=== PATIENT | female | born 1955 | race Caucasian/White ===

== ENCOUNTER 2017-06-07 09:15 | Emergency (ER) | payer OTHER ==
[~2017-06-07] VITALS: Ht 160 cm; Wt 49.9 kg
[~2017-06-07 09:15] MED LIST: ANAPROX DS550 MG PO; CIPROFLOXACIN500 MG PO; METOPROLOL100 MG PO; MOTRIN800 MG PO; PERCOCET 325 MG1 TA2 PO; ZOFRAN4 MG PO
[2017-06-07 09:29] LABS: BASO # 0.1 10*3/uL (0.0-0.1); BASO % 0.7 % (0.0-1.0); EOS # 0.1 10*3/uL (0.0-0.4); EOS % 1.5 % (1.0-4.0); HEMATOCRIT 40.3 % (37.0-47.0); HEMOGLOBIN 13.5 g/dl (12.0-16.0); LYMPH # 1.9 10*3/uL (1.3-4.4); MEAN CELL VOLUME 89.8 fl (81.0-99.0); MEAN CORPUSCULAR HGB 30.1 pg (27.0-31.0); MEAN CORPUSCULAR HGB CONC 33.5 g/dl (33.0-37.0); MEAN PLATELET VOLUME 10.1 fl (9.6-12.3); MONO # 0.7 10*3/uL (0.1-1.0); MONO % 8.3 % (3.0-9.0); NEUT # 5.8 10*3/uL (2.3-7.9); NEUT % 67.2 % (47.0-73.0); PLATELET COUNT AUTOMATED 315 10*3/uL (130-400); RED BLOOD COUNT 4.49 10*6/uL (4.10-5.10); RED CELL DISTRI WIDTH 12.6 % (0-14.5); WHITE BLOOD COUNT 8.6 10*3/uL (4.8-10.8)
[2017-06-07 09:50] LABS: ALBUMIN 3.2 gm/dl (3.1-4.5); ALKALINE PHOSPHATASE 130 U/L (45-117); BUN 13 mg/dl (7-24); CHLORIDE 105 mmol/L (98-107); CREATININE 0.65 mg/dL (0.55-1.02); LIPASE 231 U/L (73-393); POTASSIUM 4.4 mmol/L (3.5-5.1); SGOT/AST 23 IU/L (3-35); SGPT/ALT 23 U/L (12-78); SODIUM 141 mmol/L (136-145); TOTAL PROTEIN 7.5 gm/dL (6.4-8.2); TROPONIN I < 0.015 ng/ml (<0.045)
[2017-06-07] MEDS ORDERED: NAPROSYN500 MG PO (10:33)
== END 2017-06-07 10:53 | disposition home or self-care (01) ==
LOC: ED 09:15
PROVIDERS: Nurse Practitioner Family
DX: I49.1 Atrial premature depolarization (principal); R07.9 Chest pain, unspecified

== ENCOUNTER 2017-07-08 06:07 | Emergency (ER) | payer OTHER ==
[~2017-07-08] VITALS: Ht 160 cm; Wt 47.6 kg
[~2017-07-08 06:07] MED LIST changes: +NAPROSYN500 MG PO
[2017-07-08] MEDS ORDERED: AUGMENTIN 875875 MG PO (06:24)
== END 2017-07-08 06:27 | disposition home or self-care (01) ==
LOC: ED 06:07
DX: S61.432A Puncture wound without foreign body of left hand, initial encounter (principal); S61.431A Puncture wound without foreign body of right hand, initial encounter; W54.0XXA Bitten by dog, initial encounter; Y93.89 Activity, other specified; Y92.89 Other specified places as the place of occurrence of the external cause; Y99.9 Unspecified external cause status

== ENCOUNTER 2018-01-02 09:18 | Emergency (ER) | payer OTHER ==
[~2018-01-02] VITALS: Ht 165.1 cm; Wt 49.9 kg
[~2018-01-02 09:18] MED LIST changes: +AUGMENTIN 875875 MG PO
[2018-01-02 09:56] LABS: BILIRUBIN NEGATIVE (NEGATIVE); BLOOD NEGATIVE (NEGATIVE); CLARITY CLEAR (CLEAR); COLOR YELLOW (YELLOW); GLUCOSE NEGATIVE (NEGATIVE); KETONE NEGATIVE (NEGATIVE); LEUKO ESTERASE NEGATIVE (NEGATIVE); NITRITE NEGATIVE (NEGATIVE); PH 5.5 (5.0-9.0); UROBILINOGEN 0.2 E.U./dl (0.2-1.0)
[2018-01-02 10:06] LABS: BASO % 0.4 % (0.0-1.0); EOS % 0.4 % (1.0-4.0); HEMATOCRIT 41.1 % (37.0-47.0); HEMOGLOBIN 13.4 g/dl (12.0-16.0); LYMPH # 1.4 10*3/uL (1.3-4.4); LYMPH % 25.1 % (27.0-41.0); MEAN CELL VOLUME 91.7 fl (81.0-99.0); MEAN CORPUSCULAR HGB 29.9 pg (27.0-31.0); MEAN CORPUSCULAR HGB CONC 32.6 g/dl (33.0-37.0); MEAN PLATELET VOLUME 10.5 fl (9.6-12.3); MONO # 0.6 10*3/uL (0.1-1.0); MONO % 10.2 % (3.0-9.0); NEUT # 3.5 10*3/uL (2.3-7.9); NEUT % 63.5 % (47.0-73.0); PLATELET COUNT AUTOMATED 236 10*3/uL (130-400); RED BLOOD COUNT 4.48 10*6/uL (4.10-5.10); WHITE BLOOD COUNT 5.5 10*3/uL (4.8-10.8)
[2018-01-02 10:09] LABS: BACTERIA TRACE; MUCOUS 1+
[2018-01-02 10:14] LABS: ALBUMIN 3.4 gm/dl (3.1-4.5); ALKALINE PHOSPHATASE 102 U/L (45-117); BUN 14 mg/dl (7-24); CHLORIDE 109 mmol/L (98-107); CREATININE 0.72 mg/dL (0.55-1.02); LIPASE 236 U/L (73-393); POTASSIUM 3.6 mmol/L (3.5-5.1); SGOT/AST 19 IU/L (3-35); SGPT/ALT 20 U/L (12-78); SODIUM 144 mmol/L (136-145); TOTAL PROTEIN 7.1 gm/dL (6.4-8.2)
[2018-01-02] MEDS ORDERED: NAPROSYN500 MG PO (10:18)
== END 2018-01-02 11:16 | disposition home or self-care (01) ==
LOC: ED 09:18
PROVIDERS: Emergency Medicine; Nurse Practitioner Family
DX: R07.81 Pleurodynia (principal); R03.0 Elevated blood-pressure reading, without diagnosis of hypertension

== ENCOUNTER → 2018-04-20 | Outpatient (CLI) | payer OTHER ==
[2018-04-20 10:48] LABS: HEMATOCRIT 45.3 % (37.0-47.0); HEMOGLOBIN 14.9 g/dl (12.0-16.0); MEAN CELL VOLUME 91.1 fl (81.0-99.0); MEAN CORPUSCULAR HGB CONC 32.9 g/dl (33.0-37.0); MEAN PLATELET VOLUME 10.4 fl (9.6-12.3); RED BLOOD COUNT 4.97 10*6/uL (4.10-5.10); RED CELL DISTRI WIDTH 12.8 % (0-14.5); WHITE BLOOD COUNT 5.5 10*3/uL (4.8-10.8)
[2018-04-20 11:27] LABS: ALBUMIN 3.6 gm/dl (3.1-4.5); BUN 16 mg/dl (7-24); CHLORIDE 106 mmol/L (98-107); CHOLESTEROL 271 mg/dL (<200); CREATININE 0.64 mg/dL (0.55-1.02); POTASSIUM 4.6 mmol/L (3.5-5.1); SGOT/AST 16 IU/L (3-35); SGPT/ALT 17 U/L (12-78); SODIUM 142 mmol/L (136-145); TOTAL PROTEIN 7.9 gm/dL (6.4-8.2); TRIGLYCERIDES 80 mg/dl (<150); VLDL CHOLESTEROL 16 mg/dL (6-40)
[2018-04-20 11:28] LABS: ALKALINE PHOSPHATASE 103 U/L (45-117); HDL CHOLESTEROL 87 mg/dl (40-60); LDL CHOLESTEROL 168 mg/dL (9-159)
== END | disposition home or self-care (01) ==
LOC: LAB 10:22
PROVIDERS: Family Medicine
DX: E55.9 Vitamin D deficiency, unspecified (principal); E78.00 Pure hypercholesterolemia, unspecified

== ENCOUNTER → 2018-06-02 | Outpatient (CLI) | payer OTHER | LOC: MAMMO 15:53 | DX: Z12.31 Encounter for screening mammogram for malignant neoplasm of breast (principal) ==

== ENCOUNTER → 2018-06-14 | Outpatient (CLI) | payer OTHER ==
[2018-06-14 17:12] LABS: ALBUMIN 3.3 gm/dl (3.1-4.5); ALKALINE PHOSPHATASE 101 U/L (45-117); BUN 26 mg/dl (7-24); CHLORIDE 108 mmol/L (98-107); CHOLESTEROL 222 mg/dL (<200); CREATININE 0.71 mg/dL (0.55-1.02); HDL CHOLESTEROL 75 mg/dl (40-60); LDL CHOLESTEROL 106 mg/dL (9-159); POTASSIUM 3.5 mmol/L (3.5-5.1); SGOT/AST 19 IU/L (3-35); SGPT/ALT 18 U/L (12-78); SODIUM 142 mmol/L (136-145); TOTAL PROTEIN 6.9 gm/dL (6.4-8.2); TRIGLYCERIDES 207 mg/dl (<150); VLDL CHOLESTEROL 41 mg/dL (6-40)
== END | disposition home or self-care (01) ==
LOC: LAB 16:21
PROVIDERS: Family Medicine
DX: E78.00 Pure hypercholesterolemia, unspecified (principal)

== ENCOUNTER → 2018-10-15 | Outpatient (CLI) | payer OTHER ==
[~2018-10-15] MED LIST changes: +PREDNISONE20 M1 PO
[2018-10-15 09:19] LABS: ALBUMIN 3.2 gm/dl (3.1-4.5); ALKALINE PHOSPHATASE 103 U/L (45-117); BUN 19 mg/dl (7-24); CHLORIDE 108 mmol/L (98-107); CHOLESTEROL 234 mg/dL (<200); CREATININE 0.72 mg/dL (0.55-1.02); HDL CHOLESTEROL 83 mg/dl (40-60); LDL CHOLESTEROL 137 mg/dL (9-159); POTASSIUM 4.6 mmol/L (3.5-5.1); SGOT/AST 20 IU/L (3-35); SGPT/ALT 23 U/L (12-78); SODIUM 142 mmol/L (136-145); TOTAL PROTEIN 7.1 gm/dL (6.4-8.2); TRIGLYCERIDES 71 mg/dl (<150); VLDL CHOLESTEROL 14 mg/dL (6-40)
== END | disposition home or self-care (01) ==
LOC: LAB 08:38
PROVIDERS: Family Medicine
DX: E74.9 Disorder of carbohydrate metabolism, unspecified (principal); E78.00 Pure hypercholesterolemia, unspecified

== ENCOUNTER 2019-02-14 11:32 | Emergency (ER) | payer OTHER ==
[~2019-02-14] VITALS: Ht 160 cm; Wt 48.5 kg
[~2019-02-14 11:32] MED LIST changes: -PREDNISONE20 M1 PO
[2019-02-14] MEDS ORDERED: PREDNISONE20 M1 PO (12:16)
== END 2019-02-14 12:20 | disposition home or self-care (01) ==
LOC: ED 11:32
DX: L23.7 Allergic contact dermatitis due to plants, except food (principal)

== ENCOUNTER → 2019-08-02 | Outpatient (CLI) | payer MEDICAID ==
[~2019-08-02] MED LIST changes: +PREDNISONE20 M1 PO
[2019-08-02 09:46] LABS: HEMATOCRIT 44.4 % (37.0-47.0); HEMOGLOBIN 14.4 g/dl (12.0-16.0); MEAN CELL VOLUME 90.4 fl (81.0-99.0); MEAN CORPUSCULAR HGB 29.3 pg (27.0-31.0); MEAN CORPUSCULAR HGB CONC 32.4 g/dl (33.0-37.0); MEAN PLATELET VOLUME 10.6 fl (9.6-12.3); RED BLOOD COUNT 4.91 10*6/uL (4.10-5.10); RED CELL DISTRI WIDTH 12.6 % (0-14.5); WHITE BLOOD COUNT 5.2 10*3/uL (4.8-10.8)
[2019-08-02 10:15] LABS: CHLORIDE 109 mmol/L (98-107); POTASSIUM 3.9 mmol/L (3.5-5.1); SODIUM 140 mmol/L (136-145)
[2019-08-02 10:33] LABS: ALBUMIN 3.6 gm/dl (3.1-4.5); ALKALINE PHOSPHATASE 112 U/L (45-117); BUN 16 mg/dl (7-24); CHOLESTEROL 237 mg/dL (<200); CREATININE 0.76 mg/dL (0.55-1.02); HDL CHOLESTEROL 82 mg/dl (40-60); LDL CHOLESTEROL 133 mg/dL (9-159); SGOT/AST 19 IU/L (3-35); SGPT/ALT 20 U/L (12-78); TOTAL PROTEIN 7.3 gm/dL (6.4-8.2); TRIGLYCERIDES 111 mg/dl (<150); VLDL CHOLESTEROL 22 mg/dL (6-40)
== END | disposition home or self-care (01) ==
LOC: LAB 08:56
PROVIDERS: Family Medicine
DX: M67.432 Ganglion, left wrist (principal); M25.532 Pain in left wrist; E78.00 Pure hypercholesterolemia, unspecified; R53.83 Other fatigue

== ENCOUNTER → 2019-08-25 | Outpatient (CLI) | payer OTHER | END | disposition home or self-care (01) | LOC: LAB 08:33 | DX: L29.9 Pruritus, unspecified (principal) ==

== ENCOUNTER → 2019-09-13 | Outpatient (CLI) | payer OTHER | END | disposition home or self-care (01) | LOC: RAD 10:37 | DX: R05 Cough (principal); R06.02 Shortness of breath ==

== ENCOUNTER → 2019-12-23 | Outpatient (CLI) | payer OTHER | END | disposition home or self-care (01) | LOC: RAD 10:29 | DX: M46.82 Other specified inflammatory spondylopathies, cervical region (principal); M48.02 Spinal stenosis, cervical region; M25.78 Osteophyte, vertebrae ==

== ENCOUNTER 2020-01-23 10:56 | Inpatient (IN) | payer OTHER ==
[~2020-01-23] VITALS: Ht 160 cm; Wt 48.1 kg
[2020-01-23 11:03] VITALS: BP 122/78
[2020-01-23 11:30] LABS: BASO % 0.5 % (0.0-1.0); EOS # 0.1 10*3/uL (0.0-0.4); EOS % 0.7 % (1.0-4.0); HEMATOCRIT 41.7 % (37.0-47.0); LYMPH % 25.9 % (27.0-41.0); MEAN CELL VOLUME 89.9 fl (81.0-99.0); MEAN CORPUSCULAR HGB 29.7 pg (27.0-31.0); MEAN CORPUSCULAR HGB CONC 33.1 g/dl (33.0-37.0); MEAN PLATELET VOLUME 10.2 fl (9.6-12.3); MONO # 0.7 10*3/uL (0.1-1.0); MONO % 8.6 % (3.0-9.0); NEUT # 4.8 10*3/uL (2.3-7.9); NEUT % 63.9 % (47.0-73.0); PLATELET COUNT AUTOMATED 279 10*3/uL (130-400); RED BLOOD COUNT 4.64 10*6/uL (4.10-5.10); RED CELL DISTRI WIDTH 12.7 % (0-14.5); WHITE BLOOD COUNT 7.6 10*3/uL (4.8-10.8)
[2020-01-23 11:45] LABS: ALBUMIN 3.3 gm/dl (3.1-4.5); ALKALINE PHOSPHATASE 107 U/L (45-117); BUN 19 mg/dl (7-24); CHLORIDE 108 mmol/L (98-107); CREATININE 0.87 mg/dL (0.55-1.02); POTASSIUM 3.8 mmol/L (3.5-5.1); SGOT/AST 23 IU/L (3-35); SGPT/ALT 23 U/L (12-78); SODIUM 140 mmol/L (136-145); TOTAL PROTEIN 7.2 gm/dL (6.4-8.2)
[2020-01-23 12:00] VITALS: BP 130/62
[2020-01-23 14:17] LABS: BILIRUBIN 1+ (NEGATIVE); BLOOD NEGATIVE (NEGATIVE); CLARITY CLEAR (CLEAR); COLOR YELLOW (YELLOW); GLUCOSE NEGATIVE (NEGATIVE); KETONE NEGATIVE (NEGATIVE)
[2020-01-23 14:18] LABS: BACTERIA 1+; CALCIUM OXALATE CRYSTALS TRACE; LEUKO ESTERASE NEGATIVE (NEGATIVE); MUCOUS 1+; NITRITE NEGATIVE (NEGATIVE); PH 7.5 (5.0-9.0); UROBILINOGEN 0.2 E.U./dl (0.2-1.0)
[2020-01-23 14:25] VITALS: BP 120/68
[2020-01-23] MEDS ORDERED: ZOLOFT25 MG PO (14:25)
[2020-01-23] MEDS ORDERED: NAPROXEN500 MG PO (14:26)
[2020-01-23 14:50] VITALS: BP 120/68
--- NOTE | 2020-01-23 14:50 | NUR ---
A 65YO FEMALE, admitted to , under the services of KYRA Bruno MD with a diagnosis of NEAR SYNCOPE. Chief complaint is EPISODE OF DIZZINESS/WEAKNESS EARLIER TODAY. Patient arrived via stretcher from ER. Monitor applied. Initial assessment completed. Vital signs taken and recorded. KYRA BRUNO MD notified of admission to the unit. Orders received. See assessment for past medical history, medications and allergies. Patient and/or family oriented to unit. [facility] visitation policy reviewed. Clothing/patient valuable form completed. JEREMY LARA
[2020-01-23] MEDS ORDERED: FISH OIL 1,0001 EAC2 PO (15:02)
--- NOTE | 2020-01-23 15:35 | NUR ---
DR. WORTHINGTON NOTIFIED OF CONSULT, OBTAINED ADDITIONAL ORDERS FOR TROPONIN I AND ORTHOSTATIC BLOOD PRESSURES.
--- NOTE | 2020-01-23 17:00 | NUR ---
OBTAINED ORTHOSTATIC BLOOD PRESSURES FOLLOWED: SUPINE 136/66 PULSE 60, SITTING 147/64 PULSE 77, STANDING 151/79 PULSE 73.
[2020-01-23 20:00] VITALS: BP 120/73
[2020-01-24] VITALS: BP 136/68
--- NOTE | 2020-01-24 04:50 | NUR ---
PATIENT RESTING IN BED QUIETLY. NO COMPLAINTS AT THIS TIME. CALL LIGHT WITHIN REACH. WILL CONTINUE TO MONITOR.
[2020-01-24 08:00] VITALS: BP 124/69
--- NOTE | 2020-01-24 08:14 | NUR ---
24 HR chart check completed.
--- NOTE | 2020-01-24 09:00 | NUR ---
Cabinetmaker Apprentice in to talk to patient. Patient states lives at home with her daughter. There are 8-9 steps in the home. Physician: Dr. Manjinder Ricardo Pharmacy: [facility] health services: none Patient's level of ADLs: INDEPENDENT Patient has working utilities: yes DME: none Follow-up physician's appointment after d/c: she prefers to make her own follow up appt after discharge Does patient want to access PORTAL?: no Discharge plan discussed with patient. She lives at home with her daughter. She states she is independent in her ADLs and ambulation. Discussed short term rehab and home health care services and she denies a need for either. When medically stable she will be discharged to home. She states one of her daughters will provide transportation on discharge. FANG STAFFORD
[2020-01-24 12:00] VITALS: BP 109/63
[2020-01-24 16:00] VITALS: BP 115/73
[2020-01-24 20:00] VITALS: BP 121/64
--- NOTE | 2020-01-24 20:15 | NUR ---
PATIENT C/O A HEADACHE, NOTIFIED DR. VILLALOBOS. 1000MG TYLENOL ORDERED Q8HRS PRN.
--- NOTE | 2020-01-24 21:18 | NUR ---
PATIENT C/O HEADACHE. RATES 12/14. WILL CHECK EFFECTIVENESS.
[2020-01-25] VITALS: BP 146/71
--- NOTE | 2020-01-25 | NUR ---
PATIENT SLEEPING, NO SIGNS OF DISTRESS, TYLENOL EFFECTIVE. WILL CONTINUE TO MONITOR.
--- NOTE | 2020-01-25 07:25 | NUR ---
PATIENT SLEEPING, RESPIRATIONS EASY, NON LABORED. BED IN LOWEST POSITION,CALL LIGHT WITHIN REACH. WILL CONTINUE TO MONITOR.
--- NOTE | 2020-01-25 07:45 | NUR ---
24 HR chart check completed.
[2020-01-25 08:00] VITALS: BP 119/62
--- NOTE | 2020-01-25 09:35 | NUR ---
TOOK OVER THE CARE OF PATIENT. PATIENT WAS WORKING WITH PHYSICAL THEARPY AND HAD NO COMPLAINTS OF ANYTHING AT THIS TIME. I NOTIFIED HER ABOUT BEING DISCHARGED TODAY.
--- NOTE | 2020-01-25 09:59 | NUR ---
PHYSICAL THERAPY Sunithakarishma completed no skilled therapy need at this time for discharge today to home Kathleen Gonsalez PT
[2020-01-25 12:00] VITALS: BP 102/53
--- NOTE | 2020-01-25 14:08 | NUR ---
Occupational Therapy evaluation completed on 5E with full evaluation to follow. Recommend occupational therapy per plan of care and return home upon discharge. Thank you for this referral. Gayathri Pantoja OTR/L
--- NOTE | 2020-01-25 14:30 | NUR ---
Discharge instructions reviewed with patient/family. Patient receptive and verbalizes understanding. Follow-up care arranged. Written instructions given to patient/family. IV WAS REMOVED AND HEART MONITOR WAS REMOVED. PT HAD NO QUESTIONS AT THIS TIME. SHRUTHI SANTACRUZ
== END 2020-01-25 14:40 | disposition home or self-care (01) | DRG 204 ==
LOC: ED 10:56 → EDHOLD 13:48 → 5E 13:48
PROVIDERS: Emergency Medicine; ADMIT Internal Medicine
DX: R55 Syncope and collapse (principal); Z82.3 Family history of stroke; Z79.899 Other long term (current) drug therapy

== ENCOUNTER 2020-05-06 08:34 | Emergency (ER) | payer OTHER ==
[~2020-05-06] VITALS: Ht 162.5 cm; Wt 47.6 kg
[~2020-05-06 08:34] MED LIST changes: +FISH OIL 1,0001 EAC2 PO; +NAPROXEN500 MG PO; +ZOLOFT25 MG PO
[2020-05-06 09:20] LABS: BASO % 0.2 % (0.0-1.0); EOS # 0.1 10*3/uL (0.0-0.4); EOS % 0.6 % (1.0-4.0); HEMATOCRIT 41.6 % (37.0-47.0); LYMPH # 1.4 10*3/uL (1.3-4.4); LYMPH % 14.7 % (27.0-41.0); MEAN CELL VOLUME 89.8 fl (81.0-99.0); MEAN CORPUSCULAR HGB 29.4 pg (27.0-31.0); MEAN CORPUSCULAR HGB CONC 32.7 g/dl (33.0-37.0); MEAN PLATELET VOLUME 10.3 fl (9.6-12.3); MONO # 0.5 10*3/uL (0.1-1.0); MONO % 5.6 % (3.0-9.0); NEUT # 7.3 10*3/uL (2.3-7.9); NEUT % 78.4 % (47.0-73.0); PLATELET COUNT AUTOMATED 303 10*3/uL (130-400); RED BLOOD COUNT 4.63 10*6/uL (4.10-5.10); RED CELL DISTRI WIDTH 12.7 % (0-14.5); WHITE BLOOD COUNT 9.3 10*3/uL (4.8-10.8)
[2020-05-06 09:36] LABS: BUN 22 mg/dl (7-24); CHLORIDE 110 mmol/L (98-107); CREATININE 0.82 mg/dL (0.55-1.02); POTASSIUM 4.4 mmol/L (3.5-5.1); SODIUM 143 mmol/L (136-145)
[2020-05-06 09:37] LABS: TROPONIN I < 0.015 ng/ml (<0.045)
== END 2020-05-06 09:46 | disposition home or self-care (01) ==
LOC: ED 08:34
PROVIDERS: Emergency Medicine
DX: R55 Syncope and collapse (principal); Z79.899 Other long term (current) drug therapy

== ENCOUNTER 2020-06-14 00:19 | Emergency (ER) | payer OTHER ==
[~2020-06-14] VITALS: Ht 160 cm; Wt 49.9 kg
[2020-06-14 01:09] LABS: BASO # 0.1 10*3/uL (0.0-0.1); BASO % 0.6 % (0.0-1.0); EOS # 0.1 10*3/uL (0.0-0.4); EOS % 1.2 % (1.0-4.0); HEMATOCRIT 43.6 % (37.0-47.0); LYMPH # 3.2 10*3/uL (1.3-4.4); LYMPH % 37.4 % (27.0-41.0); MEAN CELL VOLUME 89.2 fl (81.0-99.0); MEAN CORPUSCULAR HGB 29.7 pg (27.0-31.0); MEAN CORPUSCULAR HGB CONC 33.3 g/dl (33.0-37.0); MEAN PLATELET VOLUME 10.2 fl (9.6-12.3); MONO # 0.7 10*3/uL (0.1-1.0); MONO % 8.7 % (3.0-9.0); NEUT # 4.4 10*3/uL (2.3-7.9); NEUT % 51.9 % (47.0-73.0); PLATELET COUNT AUTOMATED 285 10*3/uL (130-400); RED BLOOD COUNT 4.89 10*6/uL (4.10-5.10); RED CELL DISTRI WIDTH 12.6 % (0-14.5); WHITE BLOOD COUNT 8.5 10*3/uL (4.8-10.8)
[2020-06-14 01:13] LABS: BILIRUBIN Negative (Negative); BLOOD Negative (Negative); CLARITY Clear (Clear); COLOR Yellow (Yellow); GLUCOSE Negative (Negative); KETONE Trace (Negative); LEUKO ESTERASE Negative (Negative); NITRITE Negative (Negative); PH 7.5 (4.5-8.0); UROBILINOGEN 0.2 E.U./dl (0.0-1.0)
[2020-06-14 01:18] LABS: WBC 0-2 wbc/hpf (0-5)
[2020-06-14 01:25] LABS: ALBUMIN 3.6 gm/dl (3.1-4.5); ALKALINE PHOSPHATASE 114 U/L (45-117); BUN 21 mg/dl (7-24); CHLORIDE 108 mmol/L (98-107); CREATININE 0.82 mg/dL (0.55-1.02); POTASSIUM 3.7 mmol/L (3.5-5.1); SGOT/AST 20 IU/L (3-35); SGPT/ALT 17 U/L (12-78); SODIUM 139 mmol/L (136-145); TOTAL PROTEIN 7.4 gm/dL (6.4-8.2)
[2020-06-14] MEDS ORDERED: PERCOCET 5-3251 EACH PO (06:06)
== END 2020-06-14 08:43 | disposition other institution (70) ==
LOC: ED 00:19
PROVIDERS: Emergency Medicine
DX: N20.0 Calculus of kidney (principal); Z79.899 Other long term (current) drug therapy

== ENCOUNTER → 2020-10-16 | Outpatient (CLI) | payer OTHER ==
[~2020-10-16] MED LIST changes: +PERCOCET 5-3251 EACH PO
[2020-10-16 16:41] LABS: HEMATOCRIT 42.8 % (37.0-47.0); MEAN CELL VOLUME 90.7 fl (81.0-99.0); MEAN CORPUSCULAR HGB 29.7 pg (27.0-31.0); MEAN CORPUSCULAR HGB CONC 32.7 g/dl (33.0-37.0); RED BLOOD COUNT 4.72 10*6/uL (4.10-5.10); RED CELL DISTRI WIDTH 12.6 % (0-14.5); WHITE BLOOD COUNT 7.2 10*3/uL (4.8-10.8)
[2020-10-16 17:10] LABS: ALBUMIN 3.6 gm/dl (3.1-4.5); ALKALINE PHOSPHATASE 108 U/L (45-117); BUN 24 mg/dl (7-24); CHLORIDE 107 mmol/L (98-107); CREATININE 0.74 mg/dL (0.55-1.02); SGOT/AST 22 IU/L (3-35); SGPT/ALT 22 U/L (12-78); SODIUM 141 mmol/L (136-145); TOTAL PROTEIN 7.3 gm/dL (6.4-8.2)
== END | disposition home or self-care (01) ==
LOC: LAB 16:26
PROVIDERS: ATTEND Family Medicine
DX: E55.9 Vitamin D deficiency, unspecified (principal); N20.0 Calculus of kidney; E74.00 Glycogen storage disease, unspecified; F41.1 Generalized anxiety disorder

== ENCOUNTER → 2020-11-06 | Outpatient (CLI) | payer OTHER | END | disposition home or self-care (01) | LOC: CT 09:57 | PROVIDERS: ATTEND Urology | DX: N20.0 Calculus of kidney (principal); J98.11 Atelectasis; K59.00 Constipation, unspecified ==

== ENCOUNTER → 2020-12-21 | Outpatient (CLI) | payer OTHER | END | disposition home or self-care (01) | LOC: LAB 08:00 | PROVIDERS: ATTEND Urology | DX: N20.0 Calculus of kidney (principal); R31.9 Hematuria, unspecified ==

== ENCOUNTER → 2020-12-22 | Outpatient (CLI) | payer OTHER ==
[~2020-12-22] MED LIST changes: +TESSALON PERLE100 MG PO; +ZITHROMAX250 MG PO
[2020-12-22 09:32] LABS: BASO % 0.7 % (0.0-1.0); EOS # 0.1 10*3/uL (0.0-0.4); EOS % 1.3 % (1.0-4.0); HEMATOCRIT 42.1 % (37.0-47.0); LYMPH # 1.7 10*3/uL (1.3-4.4); LYMPH % 30.9 % (27.0-41.0); MEAN CELL VOLUME 91.5 fl (81.0-99.0); MEAN CORPUSCULAR HGB 29.3 pg (27.0-31.0); MEAN CORPUSCULAR HGB CONC 32.1 g/dl (33.0-37.0); MONO # 0.7 10*3/uL (0.1-1.0); MONO % 12.9 % (3.0-9.0); NEUT # 2.9 10*3/uL (2.3-7.9); PLATELET COUNT AUTOMATED 266 10*3/uL (130-400); WHITE BLOOD COUNT 5.4 10*3/uL (4.8-10.8)
[2020-12-22 09:57] LABS: ALBUMIN 3.2 gm/dl (3.1-4.5); ALKALINE PHOSPHATASE 96 U/L (45-117); BUN 19 mg/dl (7-24); CHLORIDE 108 mmol/L (98-107); CREATININE 0.73 mg/dL (0.55-1.02); POTASSIUM 3.6 mmol/L (3.5-5.1); SGOT/AST 18 IU/L (3-35); SGPT/ALT 20 U/L (12-78); SODIUM 141 mmol/L (136-145); T3 UPTAKE 34 % (31-39); THYROXINE (T4) TOTAL 7.2 ug/dl (4.8-13.9); TOTAL PROTEIN 7.1 gm/dL (6.4-8.2)
[2020-12-22 10:52] LABS: BILIRUBIN Negative (Negative); BLOOD Negative (Negative); CLARITY Clear (Clear); COLOR Yellow (Yellow); GLUCOSE Negative (Negative); KETONE Negative (Negative); LEUKO ESTERASE Negative (Negative); NITRITE Negative (Negative); PH 5.5 (4.5-8.0); SPECIFIC GRAVITY <= 1.005 (1.001-1.030); UROBILINOGEN 0.2 E.U./dl (0.0-1.0)
[2020-12-22 11:47] LABS: EPITHELIAL CELLS 0-2; RBC 0-2 rbc/hpf (0-2); WBC 0-2 wbc/hpf (0-5)
== END | disposition home or self-care (01) ==
LOC: US 12-20 13:30 → LAB 00:43 → US 09:30 → LAB 09:30
PROVIDERS: ATTEND Urology
DX: N20.0 Calculus of kidney (principal); I63.9 Cerebral infarction, unspecified; R31.9 Hematuria, unspecified

== ENCOUNTER 2020-12-26 21:47 | Emergency (ER) | payer OTHER ==
[~2020-12-26] VITALS: Ht 157.4 cm
[~2020-12-26 21:47] MED LIST changes: -TESSALON PERLE100 MG PO; -ZITHROMAX250 MG PO
[2020-12-26 22:40] LABS: BASO % 0.5 % (0.0-1.0); EOS % 0.5 % (1.0-4.0); HEMATOCRIT 39.3 % (37.0-47.0); MEAN CELL VOLUME 90.8 fl (81.0-99.0); MEAN CORPUSCULAR HGB CONC 33.1 g/dl (33.0-37.0); MEAN PLATELET VOLUME 10.4 fl (9.6-12.3); MONO # 0.8 10*3/uL (0.1-1.0); MONO % 10.3 % (3.0-9.0); NEUT # 5.2 10*3/uL (2.3-7.9); NEUT % 64.3 % (47.0-73.0); PLATELET COUNT AUTOMATED 243 10*3/uL (130-400); RED BLOOD COUNT 4.33 10*6/uL (4.10-5.10); RED CELL DISTRI WIDTH 13.2 % (0-14.5); WHITE BLOOD COUNT 8.1 10*3/uL (4.8-10.8)
[2020-12-26 22:59] LABS: ALBUMIN 3.2 gm/dl (3.1-4.5); ALKALINE PHOSPHATASE 98 U/L (45-117); BUN 13 mg/dl (7-24); CHLORIDE 107 mmol/L (98-107); CREATININE 0.73 mg/dL (0.55-1.02); POTASSIUM 3.7 mmol/L (3.5-5.1); SGOT/AST 22 IU/L (3-35); SGPT/ALT 18 U/L (12-78); SODIUM 141 mmol/L (136-145)
[2020-12-27] MEDS ORDERED: ZITHROMAX250 MG PO (00:38)
[2020-12-27] MEDS ORDERED: TESSALON PERLE100 MG PO (00:38)
== END 2020-12-27 06:32 | disposition home or self-care (01) ==
LOC: ED 21:47
PROVIDERS: Emergency Medicine
DX: J40 Bronchitis, not specified as acute or chronic (principal)

== ENCOUNTER → 2021-04-14 | Outpatient (CLI) | payer OTHER ==
[~2021-04-14] MED LIST changes: +TESSALON PERLE100 MG PO; +ZITHROMAX250 MG PO
[2021-04-14 08:59] LABS: HEMATOCRIT 41.7 % (37.0-47.0); MEAN CELL VOLUME 90.8 fl (81.0-99.0); MEAN CORPUSCULAR HGB 29.6 pg (27.0-31.0); MEAN CORPUSCULAR HGB CONC 32.6 g/dl (33.0-37.0); MEAN PLATELET VOLUME 10.2 fl (9.6-12.3); RED BLOOD COUNT 4.59 10*6/uL (4.10-5.10); WHITE BLOOD COUNT 5.5 10*3/uL (4.8-10.8)
[2021-04-14 09:19] LABS: ALBUMIN 3.3 gm/dl (3.1-4.5); BUN 17 mg/dl (7-24); CHLORIDE 106 mmol/L (98-107); CHOLESTEROL 239 mg/dL (<200); CREATININE 0.81 mg/dL (0.55-1.02); POTASSIUM 4.1 mmol/L (3.5-5.1); SGOT/AST 19 IU/L (3-35); SGPT/ALT 17 U/L (12-78); SODIUM 141 mmol/L (136-145); TRIGLYCERIDES 88 mg/dl (<150)
[2021-04-14 09:20] LABS: ALKALINE PHOSPHATASE 101 U/L (45-117); TOTAL PROTEIN 7.2 gm/dL (6.4-8.2)
[2021-04-14 09:21] LABS: LDL CHOLESTEROL 140 mg/dL (9-159)
== END | disposition home or self-care (01) ==
LOC: LAB 08:29
PROVIDERS: ATTEND Family Medicine
DX: F41.1 Generalized anxiety disorder (principal); E78.00 Pure hypercholesterolemia, unspecified; E55.9 Vitamin D deficiency, unspecified; E74.00 Glycogen storage disease, unspecified

== ENCOUNTER → 2021-06-04 | Outpatient (CLI) | payer OTHER | LOC: MAMMO 13:42 | PROVIDERS: ATTEND Family Medicine | DX: Z12.31 Encounter for screening mammogram for malignant neoplasm of breast (principal) ==

== ENCOUNTER → 2021-10-24 | Outpatient (CLI) | payer OTHER ==
[2021-10-24 12:30] LABS: HEMATOCRIT 42.9 % (37.0-47.0); MEAN CELL VOLUME 89.4 fl (81.0-99.0); MEAN CORPUSCULAR HGB 29.6 pg (27.0-31.0); MEAN CORPUSCULAR HGB CONC 33.1 g/dl (33.0-37.0); MEAN PLATELET VOLUME 9.7 fl (9.6-12.3); RED BLOOD COUNT 4.8 10*6/uL (4.10-5.10); RED CELL DISTRI WIDTH 12.6 % (0-14.5); WHITE BLOOD COUNT 7.1 10*3/uL (4.8-10.8)
[2021-10-24 12:47] LABS: ALKALINE PHOSPHATASE 104 U/L (45-117); BUN 22 mg/dl (7-24); CHLORIDE 106 mmol/L (98-107); CHOLESTEROL 226 mg/dL (<200); CREATININE 0.83 mg/dL (0.55-1.02); LDL CHOLESTEROL 119 mg/dL (9-159); POTASSIUM 4.3 mmol/L (3.5-5.1); SGOT/AST 24 IU/L (3-35); SGPT/ALT 20 U/L (12-78); SODIUM 139 mmol/L (136-145); TOTAL PROTEIN 7.3 gm/dL (6.4-8.2); TRIGLYCERIDES 148 mg/dl (<150)
== END | disposition home or self-care (01) ==
LOC: LAB 12:17
PROVIDERS: ATTEND Family Medicine
DX: E78.00 Pure hypercholesterolemia, unspecified (principal); F41.1 Generalized anxiety disorder; E74.00 Glycogen storage disease, unspecified

== ENCOUNTER 2021-11-29 02:38 | Emergency (ER) | payer OTHER ==
[~2021-11-29] VITALS: Ht 160 cm; Wt 50.0 kg
[2021-11-29 03:05] LABS: BASO % 0.4 % (0.0-1.0); EOS % 0.8 % (1.0-4.0); HEMATOCRIT 40.1 % (37.0-47.0); LYMPH # 1.7 10*3/uL (1.3-4.4); LYMPH % 33.7 % (27.0-41.0); MEAN CELL VOLUME 88.7 fl (81.0-99.0); MEAN CORPUSCULAR HGB 29.9 pg (27.0-31.0); MEAN CORPUSCULAR HGB CONC 33.7 g/dl (33.0-37.0); MEAN PLATELET VOLUME 10.4 fl (9.6-12.3); MONO # 0.5 10*3/uL (0.1-1.0); MONO % 10.3 % (3.0-9.0); NEUT # 2.7 10*3/uL (2.3-7.9); NEUT % 54.6 % (47.0-73.0); PLATELET COUNT AUTOMATED 259 10*3/uL (130-400); RED BLOOD COUNT 4.52 10*6/uL (4.10-5.10); RED CELL DISTRI WIDTH 12.6 % (0-14.5)
[2021-11-29 03:22] LABS: ALKALINE PHOSPHATASE 89 U/L (45-117); BUN 20 mg/dl (7-24); CHLORIDE 108 mmol/L (98-107); CREATININE 0.76 mg/dL (0.55-1.02); POTASSIUM 4.3 mmol/L (3.5-5.1); SGOT/AST 18 IU/L (3-35); SGPT/ALT 20 U/L (12-78); SODIUM 141 mmol/L (136-145); TOTAL PROTEIN 6.8 gm/dL (6.4-8.2)
[2021-11-29 05:48] LABS: BILIRUBIN Negative (Negative); BLOOD Negative (Negative); CLARITY Clear (Clear); COLOR Yellow (Yellow); GLUCOSE Negative (Negative); KETONE Negative (Negative); LEUKO ESTERASE Negative (Negative); NITRITE Negative (Negative); PH 7.5 (4.5-8.0); SPECIFIC GRAVITY 1.015 (1.001-1.030)
[2021-11-29 05:49] LABS: MUCOUS TRACE
== END 2021-11-29 06:12 | disposition home or self-care (01) ==
LOC: ED 02:38
PROVIDERS: Internal Medicine
DX: R53.1 Weakness (principal); R42 Dizziness and giddiness; R11.2 Nausea with vomiting, unspecified; Z79.899 Other long term (current) drug therapy; W18.39XA Other fall on same level, initial encounter; Y93.89 Activity, other specified; Y92.89 Other specified places as the place of occurrence of the external cause; Y99.8 Other external cause status

== ENCOUNTER → 2022-02-20 | Outpatient (CLI) | payer OTHER ==
[2022-02-20 13:50] LABS: HEMATOCRIT 42.1 % (37.0-47.0); MEAN CELL VOLUME 91.3 fl (81.0-99.0); MEAN CORPUSCULAR HGB 30.8 pg (27.0-31.0); MEAN CORPUSCULAR HGB CONC 33.7 g/dl (33.0-37.0); MEAN PLATELET VOLUME 9.9 fl (9.6-12.3); RED BLOOD COUNT 4.61 10*6/uL (4.10-5.10); RED CELL DISTRI WIDTH 12.8 % (0-14.5); WHITE BLOOD COUNT 9.2 10*3/uL (4.8-10.8)
[2022-02-20 14:21] LABS: BUN 19 mg/dl (7-24); CHLORIDE 109 mmol/L (98-107); POTASSIUM 3.8 mmol/L (3.5-5.1); SGOT/AST 16 IU/L (3-35); SGPT/ALT 18 U/L (12-78); SODIUM 142 mmol/L (136-145)
[2022-02-20 14:23] LABS: ALKALINE PHOSPHATASE 83 U/L (45-117); CHOLESTEROL 212 mg/dL (<200); CREATININE 0.74 mg/dL (0.55-1.02); LDL CHOLESTEROL 99 mg/dL (9-159); TOTAL PROTEIN 6.7 gm/dL (6.4-8.2); TRIGLYCERIDES 172 mg/dl (<150)
== END | disposition home or self-care (01) ==
LOC: LAB 13:29
PROVIDERS: ATTEND Family Medicine
DX: Z00.00 Encounter for general adult medical examination without abnormal findings (principal); E74.00 Glycogen storage disease, unspecified; F41.1 Generalized anxiety disorder; E55.9 Vitamin D deficiency, unspecified

== ENCOUNTER 2022-03-18 14:09 | Emergency (ER) | payer OTHER, MEDICAID ==
[~2022-03-18] VITALS: Ht 152.4 cm; Wt 54.4 kg
[2022-03-18 14:49] LABS: BASO % 0.6 % (0.0-1.0); EOS % 0.6 % (1.0-4.0); LYMPH # 1.6 10*3/uL (1.3-4.4); LYMPH % 23.1 % (27.0-41.0); MEAN CELL VOLUME 91.3 fl (81.0-99.0); MEAN CORPUSCULAR HGB 30.5 pg (27.0-31.0); MEAN CORPUSCULAR HGB CONC 33.4 g/dl (33.0-37.0); MONO # 0.6 10*3/uL (0.1-1.0); MONO % 7.8 % (3.0-9.0); NEUT # 4.8 10*3/uL (2.3-7.9); NEUT % 67.6 % (47.0-73.0); PLATELET COUNT AUTOMATED 286 10*3/uL (130-400); RED BLOOD COUNT 4.49 10*6/uL (4.10-5.10); RED CELL DISTRI WIDTH 12.6 % (0-14.5)
[2022-03-18 15:13] LABS: ALKALINE PHOSPHATASE 83 U/L (45-117); BUN 18 mg/dl (7-24); CHLORIDE 108 mmol/L (98-107); POTASSIUM 3.7 mmol/L (3.5-5.1); SGOT/AST 18 IU/L (3-35); SGPT/ALT 19 U/L (12-78); SODIUM 142 mmol/L (136-145); TOTAL PROTEIN 6.6 gm/dL (6.4-8.2)
== END 2022-03-18 17:09 | disposition home or self-care (01) ==
LOC: ED 14:09
PROVIDERS: Physician Assistant
DX: R55 Syncope and collapse (principal); Z79.2 Long term (current) use of antibiotics; Z79.899 Other long term (current) drug therapy

== ENCOUNTER → 2022-03-29 | Outpatient (CLI) | payer OTHER, MEDICAID ==
[2022-03-29 15:16] LABS: HEMATOCRIT 42.4 % (37.0-47.0); MEAN CELL VOLUME 91.4 fl (81.0-99.0); MEAN CORPUSCULAR HGB 30.2 pg (27.0-31.0); RED BLOOD COUNT 4.64 10*6/uL (4.10-5.10); RED CELL DISTRI WIDTH 12.4 % (0-14.5); WHITE BLOOD COUNT 7.1 10*3/uL (4.8-10.8)
[2022-03-29 15:51] LABS: ALKALINE PHOSPHATASE 98 U/L (45-117); BUN 22 mg/dl (7-24); CHLORIDE 108 mmol/L (98-107); CHOLESTEROL 215 mg/dL (<200); CREATININE 0.66 mg/dL (0.55-1.02); FREE T4 0.75 ng/dl (0.76-1.46); LDL CHOLESTEROL 113 mg/dL (9-159); POTASSIUM 3.7 mmol/L (3.5-5.1); SGOT/AST 21 IU/L (3-35); SGPT/ALT 22 U/L (12-78); SODIUM 141 mmol/L (136-145); TOTAL PROTEIN 7.1 gm/dL (6.4-8.2); TRIGLYCERIDES 153 mg/dl (<150)
[2022-03-29 15:56] LABS: THYROID STIM HORMONE (HS) 0.579 uIU/ml (0.358-4.75)
== END | disposition home or self-care (01) ==
LOC: LAB 14:39
PROVIDERS: ATTEND Family Medicine
DX: R53.83 Other fatigue (principal); E55.9 Vitamin D deficiency, unspecified; R51.9 Headache, unspecified; R10.819 Abdominal tenderness, unspecified site; Z79.899 Other long term (current) drug therapy

== ENCOUNTER → 2022-04-04 | Outpatient (CLI) | payer OTHER, MEDICAID ==
[2022-04-04 13:31] LABS: FREE T4 0.89 ng/dl (0.76-1.46)
[2022-04-04 13:36] LABS: THYROID STIM HORMONE (HS) 0.715 uIU/ml (0.358-4.75)
== END | disposition home or self-care (01) ==
LOC: LAB 12:22
PROVIDERS: ATTEND Family Medicine
DX: R94.6 Abnormal results of thyroid function studies (principal)

== ENCOUNTER → 2022-11-05 | Outpatient (CLI) | payer OTHER, MEDICAID | LOC: CARD 10-08 15:00 | PROVIDERS: ATTEND Family Medicine | DX: I49.1 Atrial premature depolarization (principal) ==

== ENCOUNTER → 2023-05-21 | Outpatient (CLI) | payer OTHER, MEDICAID ==
[2023-05-21 11:39] LABS: HEMATOCRIT 43.6 % (37.0-47.0); MEAN CELL VOLUME 91.4 fl (81.0-99.0); MEAN CORPUSCULAR HGB 30.4 pg (27.0-31.0); MEAN CORPUSCULAR HGB CONC 33.3 g/dl (33.0-37.0); MEAN PLATELET VOLUME 10.8 fl (9.6-12.3); RED BLOOD COUNT 4.77 10*6/uL (4.10-5.10); RED CELL DISTRI WIDTH 12.9 % (0-14.5); WHITE BLOOD COUNT 6.3 10*3/uL (4.8-10.8)
[2023-05-21 12:22] LABS: VITAMIN D, 25-HYDROXY 39.8 ng/mL (30-100)
[2023-05-21 12:23] LABS: ALKALINE PHOSPHATASE 90 U/L (46-116); BUN 13 mg/dl (9-23); CHLORIDE 107 mmol/L (98-107); CHOLESTEROL 221 mg/dL (<200); LDL CHOLESTEROL 125 mg/dL (9-159); POTASSIUM 4.1 mmol/L (3.4-5.1); SGPT/ALT 14 U/L (5-49); TOTAL PROTEIN 7.1 gm/dL (6.0-8.0); TRIGLYCERIDES 98 mg/dl (<150)
== END | disposition home or self-care (01) ==
LOC: LAB 11:18
PROVIDERS: ATTEND Family Medicine
DX: E74.00 Glycogen storage disease, unspecified (principal); F41.1 Generalized anxiety disorder; E55.9 Vitamin D deficiency, unspecified; R53.83 Other fatigue; R00.2 Palpitations; E78.00 Pure hypercholesterolemia, unspecified

== ENCOUNTER → 2024-07-27 | Outpatient (CLI) | payer OTHER, MEDICAID ==
[~2024-07-27] MED LIST changes: +ZOLOFT50 MG PO
== END | disposition home or self-care (01) ==
LOC: RAD 02:55
PROVIDERS: ATTEND Family Medicine
DX: M47.816 Spondylosis without myelopathy or radiculopathy, lumbar region (principal); M54.50 Low back pain, unspecified

== ENCOUNTER 2024-08-13 15:54 | Emergency (ER) | payer OTHER, MEDICAID ==
[~2024-08-13] VITALS: Ht 154.9 cm; Wt 49.0 kg
[2024-08-13] MEDS ORDERED: PREDNISONE50 MG PO (18:04)
[2024-08-13] MEDS ORDERED: ALBUTEROL 8 GM INHALER INH ONE (18:05)
== END 2024-08-13 18:26 | disposition home or self-care (01) ==
LOC: ED 15:54
DX: J40 Bronchitis, not specified as acute or chronic (principal); Z79.899 Other long term (current) drug therapy

== ENCOUNTER → 2024-08-18 | Outpatient (CLI) | payer OTHER, MEDICAID ==
[~2024-08-18] MED LIST changes: +PREDNISONE50 MG PO
== END | disposition home or self-care (01) ==
LOC: MAMMO 07-19 11:30
PROVIDERS: ATTEND Family Medicine
DX: Z12.31 Encounter for screening mammogram for malignant neoplasm of breast (principal)

== ENCOUNTER → 2024-08-20 | Outpatient (CLI) | payer OTHER, MEDICAID | END | disposition home or self-care (01) | LOC: RAD 08-13 08:30 | PROVIDERS: ATTEND Family Medicine | DX: Z13.820 Encounter for screening for osteoporosis (principal); M81.0 Age-related osteoporosis without current pathological fracture ==

== ENCOUNTER → 2024-09-08 | Outpatient (CLI) | payer OTHER, MEDICAID ==
[2024-09-08 11:16] LABS: HEMATOCRIT 43.5 % (37.0-47.0); MEAN CELL VOLUME 93.1 fl (81.0-99.0); MEAN CORPUSCULAR HGB CONC 32.2 g/dl (33.0-37.0); RED BLOOD COUNT 4.67 10*6/uL (4.10-5.10); RED CELL DISTRI WIDTH 12.8 % (0-14.5); WHITE BLOOD COUNT 5.2 10*3/uL (4.8-10.8)
[2024-09-08 11:38] LABS: ALKALINE PHOSPHATASE 98 U/L (46-116); BUN 19 mg/dl (9-23); CHLORIDE 105 mmol/L (98-107); CHOLESTEROL 231 mg/dL (<200); LDL CHOLESTEROL 125 mg/dL (9-159); POTASSIUM 3.9 mmol/L (3.4-5.1); SGPT/ALT 12 U/L (5-49); TOTAL PROTEIN 6.8 gm/dL (6.0-8.0); TRIGLYCERIDES 140 mg/dl (<150)
[2024-09-08 11:48] LABS: VITAMIN D, 25-HYDROXY 37.1 ng/mL (30-100)
== END | disposition home or self-care (01) ==
LOC: LAB 10:52
PROVIDERS: ATTEND Family Medicine
DX: E78.00 Pure hypercholesterolemia, unspecified (principal); E55.9 Vitamin D deficiency, unspecified; R53.83 Other fatigue; M81.0 Age-related osteoporosis without current pathological fracture

== ENCOUNTER → 2024-09-20 | Day surgery (SDC) | payer OTHER, MEDICAID ==
[~2024-09-20] VITALS: Ht 154.9 cm; Wt 49.0 kg
[~2024-09-20] MED LIST changes: +CALCIUM 500 MG1 EAC5 PO; +FOSAMAX70 M1 PO; +Lactated Ringer's Solution 500 ML IV ONE; +Lidocaine Hydrochloride 2% 5 ML SDV IV ONE; +PROPOFOL 200 MG/20 ML VIAL IV ONE
[2024-09-20 09:36] VITALS: BP 118/64
[2024-09-20 11:58] VITALS: BP 136/72
[2024-09-20 12:13] VITALS: BP 134/73
[2024-09-20 12:25] VITALS: BP 142/81
== END | disposition home or self-care (01) ==
LOC: SDC 09-16 09:30
PROVIDERS: ATTEND Surgery
DX: R19.5 Other fecal abnormalities (principal); Z79.899 Other long term (current) drug therapy; Z98.890 Other specified postprocedural states